=== PATIENT | female | born 1930 | race Caucasian/White ===

== ENCOUNTER 2016-12-31 12:03 | Emergency (ER) | payer MEDICARE, MEDICAID ==
[2016-12-31 12:50] VITALS: BP 133/62; TEMP 98.2
--- NOTE | 2016-12-31 13:42 | ED.PDOC ---
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 The staff pushed it back into her pelvis but it kept "falling out". So they sent her to the ER. In the ER the patient is asymptomatic with no pain complaints. Timing/Duration: just prior to arrival Quality: mild Onset Location: vaginal Radiation: none Activites at Onset: physical activity Sexual intercourse history: not active Improving Factors: nothing Worsening Factors: nothing Associated Symptoms: denies symptoms Allergies/Adverse Reactions: Allergies NO KNOWN ALLERGY Allergy (Verified 07/08/16 00:24) Home Medications: Ambulatory Orders Donepezil HCl [Aricept] 10 mg PO BEDTIME 08/06/15 Metoprolol Succinate [Metoprolol Succinate ER] 25 mg PO DAILY 08/06/15 Verapamil HCl [Verapamil HCl Sr] 240 mg PO DAILY 08/06/15 Acetaminophen [Tylenol] 650 mg PO PRN PRN 07/08/16 Aspirin [Aspirin Adult Low Dose] 81 mg PO DAILY 07/08/16 Citalopram Hydrobromide [CeleXA] 20 mg PO DAILY 07/08/16 Magnesium Hydroxide [Milk Of Magnesia] 30 mg PO PRN PRN 07/08/16 Memantine HCl [Namenda Xr] 28 mg PO DAILY 07/08/16 ALPRAZolam [Xanax] 0.25 mg PO BID PRN 07/16/16 Furosemide [Lasix] 20 mg PO QAM #30 tab 07/16/16 Review of Systems - Review of Systems Constitutional: States: no symptoms reported EENTM: States: no symptoms reported Respiratory: States: no symptoms reported Cardiology: States: no symptoms reported Gastrointestinal/Abdominal: States: no symptoms reported Genitourinary: States: see HPI Musculoskeletal: States: no symptoms reported Skin: States: no symptoms reported Neurological: States: no symptoms reported Endocrine: States: no symptoms reported Hematologic/Lymphatic: States: no symptoms reported Past Medical History (General) - Patient Medical History Hx Seizures: No Hx Stroke: No Hx Dementia: No Hx Asthma: No Hx of COPD: No Hx Cardiac Disorders: No Hx Congestive Heart Failure: No Hx Pacemaker: No Hx Hypertension: Yes Hx Thyroid Disease: No Hx Diabetes: No Hx Gastroesophageal Reflux: No Hx Renal Disease: No Hx Cancer: No Hx of HIV: No Hx Hepatitis C: No Hx MRSA: No - Vaccination History Hx Tetanus, Diphtheria Vaccination: No Hx Influenza Vaccination: No Hx Pneumococcal Vaccination: No - Social History Hx Tobacco Use: No Hx Chewing Tobacco Use: No Hx Alcohol Use: No Hx Substance Use: No Hx Substance Use Treatment: No Hx Depression: Yes Hx Physical Abuse: No Hx Emotional Abuse: No Hx Suspected Abuse: No - Activities of Daily Living Intermediate/Assisted Living (if applicable):: [email or web address] - Female History Patient is a Female of Child Bearing Age (10 -59 yrs old): No Patient : No Family Medical History - Family History Mother Family History: Unknown Living Status: Cause of : old age Physical Exam - Physical Exam General Appearance: Alert Cardiovascular/Respiratory: regular rate, rhythm, normal breath sounds Gastrointestinal/Abdominal: normal bowel sounds, non tender, soft Pelvic Exam: external exam normal, bimanual exam normal, no cerv. motion tender , other - Uterus in situ Skin Exam: normal color Departure - Departure Clinical Impression: Uterine prolapse Disposition: Discharge to SNF Condition: Good Departure Forms: ED Discharge - Pt. Copy, Patient Portal Self Enrollment Diet: resume usual diet Activity: no exercise, no lifting, other - Up with assistance Home Medications: Ambulatory Orders Donepezil HCl [Aricept] 10 mg PO BEDTIME 08/06/15 Metoprolol Succinate [Metoprolol Succinate ER] 25 mg PO DAILY 08/06/15 Verapamil HCl [Verapamil HCl Sr] 240 mg PO DAILY 08/06/15 Acetaminophen [Tylenol] 650 mg PO PRN PRN 07/08/16 Aspirin [Aspirin Adult Low Dose] 81 mg PO DAILY 07/08/16 Citalopram Hydrobromide [CeleXA] 20 mg PO DAILY 07/08/16 Magnesium Hydroxide [Milk Of Magnesia] 30 mg PO PRN PRN 07/08/16 Memantine HCl [Namenda Xr] 28 mg PO DAILY 07/08/16 ALPRAZolam [Xanax] 0.25 mg PO BID PRN 07/16/16 Furosemide [Lasix] 20 mg PO QAM #30 tab 07/16/16 Additional Instructions: Follow up with house nurse as soon as possible for further evaluation.
[2017-01-01 10:38] VITALS: O2SAT 96
== END 2016-12-31 14:15 ==
LOC: ER 12:03
DX: N81.4 Uterovaginal prolapse, unspecified (principal); I10 Essential (primary) hypertension; Z79.899 Other long term (current) drug therapy

== ENCOUNTER → 2017-01-20 | Outpatient (CLI) | payer MEDICARE, OTHER | END | disposition home or self-care (01) | LOC: GT 08:20 | PROVIDERS: ATTEND Family Medicine | DX: I10 Essential (primary) hypertension (principal) ==

== ENCOUNTER → 2017-04-28 | Outpatient (CLI) | payer MEDICARE, MEDICAID | END | disposition home or self-care (01) | LOC: GT 07:50 | PROVIDERS: ATTEND Family Medicine | DX: E78.4 Other hyperlipidemia (principal); I10 Essential (primary) hypertension; R27.8 Other lack of coordination | CPT/HCPCS: 36415; 80053; 85025; P9603 ==

== ENCOUNTER → 2017-07-28 | Outpatient (CLI) | payer MEDICARE, MEDICAID | END | disposition home or self-care (01) | LOC: GT 06:39 | PROVIDERS: ATTEND Family Medicine | DX: E78.4 Other hyperlipidemia (principal) ==

== ENCOUNTER → 2017-10-27 | Outpatient (CLI) | payer MEDICARE, MEDICAID | END | disposition home or self-care (01) | LOC: GT 07:27 | PROVIDERS: ATTEND Family Medicine | DX: E78.4 Other hyperlipidemia (principal); I10 Essential (primary) hypertension; E87.6 Hypokalemia; I73.9 Peripheral vascular disease, unspecified; R60.1 Generalized edema ==

== ENCOUNTER 2018-01-17 13:26 | Emergency (ER) | payer MEDICARE, OTHER ==
[2018-01-17] MEDS ORDERED: ONDANSETRON INJ 4 MG/2 ML VIAL ONE (13:42)
--- NOTE | 2018-01-17 14:32 | CT ---
EXAM DESCRIPTION: Head: Computed Tomography. CLINICAL HISTORY: FALL . COMPARISON: CT scan of the cervical spine on this visit. CT scan of the head 12/20/2015. TECHNIQUE: Non-helical axial scans through the skull and brain, at 2.5 mm intervals, non-contrast. Coronal and Sagittal 5.0 mm reconstructions. Total Exam DLP: 752.48 mGy-cm. This exam was performed according to our departmental dose-optimization program which includes automated exposure control, adjustment of the mA and/or kV according to patient size and/or use of iterative reconstruction technique; to reduce radiation dose to as low as reasonably achievable (ALARA). FINDINGS: No hemorrhage, no mass-effect, and no midline shift. Low-density in the periventricular white matter slightly more on the left than the right. Focal encephalomalacia in the right frontal horn near the lateral ventricle. No abnormal radiodense material in the brain parenchyma. Vascular calcifications anterior and posterior; physiologic calcifications in the pineal gland and choroid plexus. No effacement or displacement of the ventricles, CSF spaces, or subdural spaces. Temporal horns are not abnormally dilated. No extra axial fluid collection or hemorrhage. No gross abnormalities of the bony calvarium. Mucoperiosteal thickening in the included paranasal sinuses. Mastoid air cells are unremarkable. IMPRESSION: 1. No hemorrhage, no mass effect, no midline shift. Stable focal encephalomalacia in the right frontal lobe. 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 2. CT scans are insensitive for detecting small CVAs in the first 24 hours after onset. Evaluation of the brain stem is also limited. If symptoms persist, consider MRI scan of the brain with diffusion imaging. Electronically signed by: Kerwin Lockett MD 01/17/2018 2:31 PM [facility]
--- NOTE | 2018-01-17 14:48 | CT ---
EXAM DESCRIPTION: Cervical Spine: Computed Tomography. CLINICAL HISTORY: fall with n/v COMPARISON: CT scan of the head noncontrast. TECHNIQUE: Spiral, axial 2.5 mm scans through the cervical spine without contrast. Coronal and sagittal 2.0 mm Reconstructions. No adverse reactions. Total Exam DLP: 364.64 mGy-cm. This exam was performed according to our departmental dose-optimization program which includes automated exposure control, adjustment of the mA and/or kV according to patient size and/or use of iterative reconstruction technique; to reduce radiation dose to as low as reasonably achievable (ALARA). FINDINGS: Arthrosis of the atlantoaxial joint. Small bone spurs and calcifications abutting the joint. Minimal arthrosis of the atlantooccipital joint. No fractures. 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 C2-3: No disc space loss. Minimal posterior disc bulge. Left facet arthrosis with spur narrowing the foramen. No uncinate spurs. No fractures. C3-4: Normal disc space loss. More to the left of midline with endplate reactive changes and uncinate spur. Also facet arthrosis on the left resulting in neural foraminal stenosis. Right uncinate spur and facet arthrosis with mild foraminal narrowing. Posterior disc bulge with moderate canal narrowing. C4-5: Trace anterolisthesis. Posterior disc osteophyte bulge into the canal. Bilateral uncinate spurs and mild right facet arthrosis. Moderate left facet arthrosis and left neural foraminal stenosis. No fracture. C5-6: Disc space loss anterior endplate ridging and trace anterolisthesis. Minimal right facet arthrosis minimal neural foraminal narrowing. Left facet arthrosis and uncinate spur with moderate neural foraminal narrowing. Mild canal narrowing. No fracture. C6-7: Moderate disc space loss anterior disc bulge in endplate ridging. Bilateral moderate endplate reaction. Minimal left facet arthrosis and uncinate spur with moderate neural foraminal narrowing. Similar process on the right. No fracture. C7-T1: No significant disc bulge. Mild left neural foraminal narrowing. Right foramen patent. Facets negative. No fractures. T1-2: Disc space canal and neural foramina are unremarkable. No fractures. Facets negative. IMPRESSION: 1. No compression type vertebral body fractures. No fractures of the posterior elements. No perched or locked facets. No significant canal stenosis. 2. Multiple levels of spondylosis facet arthrosis with exaggerated mid cervical kyphosis. Left neural foraminal stenosis at C3-4 and C4-5. Correlate for radiculopathy at these levels. Electronically signed by: Kerwin Lockett MD 01/17/2018 2:47 PM [employer]
[2018-01-17] MEDS: ONDANSETRON INJ 4 MG/2 ML VIAL IV ONE (15:00)
--- NOTE | 2018-01-17 15:00 | RAD ---
EXAM DESCRIPTION: Abdomen Series CLINICAL HISTORY: vomiting COMPARISON: None. FINDINGS: AP supine and upright views of the abdomen show a nonspecific, nonobstructive bowel gas pattern with no evidence for free intraperitoneal air. No air-filled dilated loops of small bowel are seen. No significant air-fluid levels are identified. No obvious organomegaly is seen. No abnormal calcifications are seen in the expected location of the renal collecting systems. Single view of the chest shows mild enlargement of the cardiac silhouette without pulmonary vascular congestion.. Lungs are normally aerated and clear IMPRESSION: Nonspecific abdominal series Electronically signed by: Steve Mcguire MD 01/17/2018 2:59 PM [employer]AD[employer]INE [employer]
[2018-01-17] MEDS: SODIUM CHLORIDE 0.9% 1000ML 500 ML IVS ONE (15:01)
[2018-01-17] MEDS: OSELTAMIVIR 75 MG CAP PO ONE (15:46)
--- NOTE | 2018-01-17 15:58 | ED.PDOC ---
History of Present Illness - General Chief Complaint: Neuro Symptoms/Deficits Stated Complaint: unwitnessed fall altered mental status Time Seen by Provider: 01/17/18 13:52 Source: patient, family, EMS Exam Limitations: clinical condition - History of Present Illness Initial Comments: the patient is an 88-year-old female presenting to the emergency room secondary to 2 hours of nausea and vomiting. The nausea and vomiting started abruptly. No fevers. No headache. Mild body aches. Her [facility]mate [facility] just tested positive at a clinic for influenza. The patient did actually miss her chair while sitting down this morning and landed on her rear end. No evidence of any head trauma. She has actually been ambulatory with her walker since that time. She does not seem to have any pain in her back or pelvis upon exam and active and passive range of motion of her hips seem to be preserved. She does not appear to have any abdominal pain to palpation. Zofran seems to have quieted the nausea and vomiting. She does have significant dementia and is a little less interactive than normal according to her family. No evidence of any nuchal rigidity or meningeal signs. Timing/Duration: 1-3 hours Severity: moderate Improving Factors: nothing Worsening Factors: nothing Associated Symptoms: malaise, nausea/vomiting Allergies/Adverse Reactions: Allergies NO KNOWN ALLERGY Allergy (Verified 07/08/16 00:24) Home Medications: Ambulatory Orders Donepezil HCl [Aricept] 10 mg PO BEDTIME 08/06/15 Metoprolol Succinate [Metoprolol Succinate ER] 25 mg PO DAILY 08/06/15 Verapamil HCl [Verapamil HCl Sr] 240 mg PO DAILY 08/06/15 Acetaminophen [Tylenol] 650 mg PO PRN PRN 07/08/16 Aspirin [Aspirin Adult Low Dose] 81 mg PO DAILY 07/08/16 Citalopram Hydrobromide [CeleXA] 20 mg PO DAILY 07/08/16 Magnesium Hydroxide [Milk Of Magnesia] 30 mg PO PRN PRN 07/08/16 Memantine HCl [Namenda Xr] 28 mg PO DAILY 07/08/16 ALPRAZolam [Xanax] 0.25 mg PO BID PRN 07/16/16 Furosemide [Lasix] 20 mg PO QAM #30 tab 07/16/16 Ondansetron [Zofran Odt] 4 mg PO Q4H PRN #10 tab 01/17/18 Oseltamivir Capsule [Tamiflu] 75 mg PO BID 5 Days #10 capsule 01/17/18 Review of Systems - Review of Systems Constitutional: States: malaise EENTM: States: no symptoms reported Respiratory: States: no symptoms reported Cardiology: States: no symptoms reported Gastrointestinal/Abdominal: States: nausea, vomiting Genitourinary: States: no symptoms reported Musculoskeletal: States: no symptoms reported Skin: States: no symptoms reported Neurological: States: see HPI Endocrine: States: no symptoms reported All other Systems: No Change from Baseline Past Medical History (General) - Patient Medical History Hx Seizures: No Hx Stroke: No Hx Dementia: No Hx Asthma: No Hx of COPD: No Hx Cardiac Disorders: No Hx Congestive Heart Failure: No Hx Pacemaker: No Hx Hypertension: Yes Hx Thyroid Disease: No Hx Diabetes: No Hx Gastroesophageal Reflux: No Hx Renal Disease: No Hx Cancer: No Hx of HIV: No Hx Hepatitis C: No Hx MRSA: No - Vaccination History Hx Tetanus, Diphtheria Vaccination: No Hx Influenza Vaccination: No Hx Pneumococcal Vaccination: No - Social History Hx Tobacco Use: No Hx Chewing Tobacco Use: No Hx Alcohol Use: No Hx Substance Use: No Hx Substance Use Treatment: No Hx Depression: Yes Hx Physical Abuse: No Hx Emotional Abuse: No Hx Suspected Abuse: No - Activities of Daily Living Custodial/Assisted Living (if applicable):: [facility] - Female History Patient : No - Triage Comment ED Triage Comment: EMS states patient had an unwitnessed fall and [facility] this morning. Patient has not been the same since. Patient started vomiting. Family Medical History - Family History Mother Family History: Unknown Living Status: Cause of : old age Physical Exam - Physical Exam General Appearance: Alert, Comfortable - once the nausea and vomiting was controlled, No apparent distress Eye Exam: bilateral normal Ears, Nose, Throat: hearing grossly normal, normal ENT inspection, normal pharynx Neck: full range of motion, supple Respiratory: lungs clear, normal breath sounds, no respiratory distress, no accessory muscle use Cardiovascular/Chest: normal peripheral pulses, no edema, other - regular rate Peripheral Pulses: radial,right: 2+, radial,left: 2+, popliteal,left: 2+, dorsalis pedis,left: 2+ Gastrointestinal/Abdominal: non tender, soft Rectal Exam: deferred Back Exam: no CVA tenderness, no vertebral tenderness Extremity: normal range of motion - for this patient at her age, non-tender, normal inspection, no pedal edema, normal capillary refill Neurologic: bird sitter II-XII nml as tested, alert, normal mood/affect, other - she recognizes some of her family members but is otherwise fairly disoriented. she will answer simple questions. Skin Exam: normal color Comments: Vital Signs - 24 hr 01/17/18 01/17/18 01/17/18 13:30 14:40 15:51 Temperature 99.3 F Pulse Rate [ 67 74 72 monitor] Respiratory 22 18 16 Rate Blood Pressure 169/75 171/72 154/72 [Right Arm] O2 Sat by Pulse 94 L 95 95 Oximetry Progress - Progress Progress: 01/17/18 16:02 the patient's 88-year-old female presenting to the emergency room secondary to acute onset nausea and vomiting. She did end up with a head CT and CT scan of the cervical spine as the fall this morning was unwitnessed. No evidence of any acute pathology on either exam. She does have chronic findings. Acute abdominal series shows no evidence of any acute pathology either. laboratory work is reassuring. We are unable to test for influenza directly secondary to shortage. The patient has responded nicely to Zofran and a low-dose of IV fluids. The patient will be written for Zofran for as needed use to control nausea and vomiting and the patient will be written for Tamiflu as her roommate has apparently tested positive for influenza, making this the most likely cause. She needs to be kept well hydrated. Tamiflu can be taken with food to help reduce stomach irritation. She is to follow up with her primary care doctor in 2 days. ER warnings are given for any significant worsening. - Results/Orders Results/Orders: 01/17/18 14:14 Telemetry .CONTINUOUS Laboratory Results - last 24 hr 01/17/18 01/17/18 01/17/18 14:14 14:15 14:15 WBC 7.0 RBC 4.39 Hgb 14.0 Hct 41.2 MCV 93.9 MCH 31.8 H MCHC 34.0 RDW 14.2 Plt Count 161 MPV 10.1 Absolute Neuts (auto) 4.80 Absolute Lymphs (auto) 1.10 Absolute Monos (auto) 1.00 H Absolute Eos (auto) 0.00 Absolute Basos (auto) 0.10 Neutrophils % 68.3 Lymphocytes % 15.6 L Monocytes % 14.6 H Eosinophils % 0.3 L Basophils % 1.2 PT 15.2 H INR 1.350 PTT (SP) 33.7 Sodium 138 Potassium 3.9 Chloride 103 Carbon Dioxide 24 Anion Gap 14.9 BUN 21 H Creatinine 1.31 H BUN/Creatinine Ratio 16.0 Random Glucose 140 H Serum Osmolality 281.0 Calcium 9.3 Magnesium 2.2 Total Bilirubin 0.4 AST 22 ALT < 8 L Alkaline Phosphatase 94 Creatine Kinase 52 CK-MB (CK-2) 0.7 CK-MB (CK-2) % Not Reportable Troponin I < 0.02 B-Natriuretic Peptide 130.0 H Serum Total Protein 7.5 Albumin 3.9 Globulin 3.6 H Albumin/Globulin Ratio 1.1 Amylase 54 Lipase 27 Urine Color Urine Appearance Urine pH Ur Specific [place] Urine Protein Urine Glucose (UA) Urine Ketones Urine Blood Urine Nitrite Urine Bilirubin Urine Urobilinogen Ur Leukocyte Esterase Urine RBC Urine WBC Ur Epithelial Cells Urine Bacteria 01/17/18 15:40 WBC RBC Hgb Hct MCV MCH MCHC RDW Plt Count MPV Absolute Neuts (auto) Absolute Lymphs (auto) Absolute Monos (auto) Absolute Eos (auto) Absolute Basos (auto) Neutrophils % Lymphocytes % Monocytes % Eosinophils % Basophils % PT INR PTT (SP) Sodium Potassium Chloride Carbon Dioxide Anion Gap BUN Creatinine BUN/Creatinine Ratio Random Glucose Serum Osmolality Calcium Magnesium Total Bilirubin AST ALT Alkaline Phosphatase Creatine Kinase CK-MB (CK-2) CK-MB (CK-2) % Troponin I B-Natriuretic Peptide Serum Total Protein Albumin Globulin Albumin/Globulin Ratio Amylase Lipase Urine Color Yellow Urine Appearance Clear Urine pH 6.0 Ur Specific [place] 1.025 Urine Protein Negative Urine Glucose (UA) Negative Urine Ketones Trace Urine Blood Negative Urine Nitrite Negative Urine Bilirubin Negative Urine Urobilinogen 0.2 Ur Leukocyte Esterase Negative Urine RBC 1-3 Urine WBC 0-1 Ur Epithelial Cells 0 Urine Bacteria 0 acute abdominal series shows no acute pathology. No obvious pneumonia. No bowel obstruction. No free air. No evidence of any fracture on the visualized portion of the pelvis seen Departure - Departure Clinical Impression: Gastroenteritis Disposition: Discharge to Home or Self Care Condition: Fair Departure Forms: ED Discharge - Pt. Copy, Patient Portal Self Enrollment Instructions: DI for Viral Gastroenteritis -- Adult Diet: bland diet Activity: increase activity as tolerated Referrals: Jerome Keith MD [Primary Care Provider] - 1-2 Days Prescriptions: Ondansetron [Zofran Odt] 4 mg PO Q4H PRN #10 tab PRN Reason: Vomiting Oseltamivir Capsule [Tamiflu] 75 mg PO BID 5 Days #10 capsule Home Medications: Ambulatory Orders Donepezil HCl [Aricept] 10 mg PO BEDTIME 08/06/15 Metoprolol Succinate [Metoprolol Succinate ER] 25 mg PO DAILY 08/06/15 Verapamil HCl [Verapamil HCl Sr] 240 mg PO DAILY 08/06/15 Acetaminophen [Tylenol] 650 mg PO PRN PRN 07/08/16 Aspirin [Aspirin Adult Low Dose] 81 mg PO DAILY 07/08/16 Citalopram Hydrobromide [CeleXA] 20 mg PO DAILY 07/08/16 Magnesium Hydroxide [Milk Of Magnesia] 30 mg PO PRN PRN 07/08/16 Memantine HCl [Namenda Xr] 28 mg PO DAILY 07/08/16 ALPRAZolam [Xanax] 0.25 mg PO BID PRN 07/16/16 Furosemide [Lasix] 20 mg PO QAM #30 tab 07/16/16 Ondansetron [Zofran Odt] 4 mg PO Q4H PRN #10 tab 01/17/18 Oseltamivir Capsule [Tamiflu] 75 mg PO BID 5 Days #10 capsule 01/17/18 Additional Instructions: the patient's 88-year-old female presenting to the emergency room secondary to acute onset nausea and vomiting. She did end up with a head CT and CT scan of the cervical spine as the fall this morning was unwitnessed. No evidence of any acute pathology on either exam. She does have chronic findings. Acute abdominal series shows no evidence of any acute pathology either. laboratory work is reassuring. We are unable to test for influenza directly secondary to shortage. The patient has responded nicely to Zofran and a low-dose of IV fluids. The patient will be written for Zofran for as needed use to control nausea and vomiting and the patient will be written for Tamiflu as her roommate has apparently tested positive for influenza, making this the most likely cause. She needs to be kept well hydrated. Tamiflu can be taken with food to help reduce stomach irritation. She is to follow up with her primary care doctor in 2 days. ER warnings are given for any significant worsening. Lasix and Aricept should likely be held until oral intake has improved.
[2018-01-17] MEDS: ONDANSETRON ODT 8 MG TAB SL ONE (16:12)
[2018-01-17] MEDS: FAMOTIDINE 20 MG TAB PO ONE (16:12)
[2018-01-17 16:48] VITALS: BP 138/68; TEMP 99.1; O2SAT 96
== END 2018-01-17 16:47 ==
LOC: ER 13:26
DX: K52.9 Noninfective gastroenteritis and colitis, unspecified (principal); I10 Essential (primary) hypertension; F03.90 Unspecified dementia, unspecified severity, without behavioral disturbance, psychotic disturbance, mood disturbance, and anxiety
CPT/HCPCS: 36415; 70450; 72125; 74019; 80053; 81001; 82150; 82550; 82553; 83690; 83735; 83880; 84484; 85025; 85610; 85730; J2405; J7030

== ENCOUNTER → 2018-01-26 | Outpatient (CLI) | payer MEDICARE, OTHER | LOC: GT 06:41 | PROVIDERS: ATTEND Family Medicine | DX: I10 Essential (primary) hypertension (principal); I73.9 Peripheral vascular disease, unspecified; R60.1 Generalized edema; E87.6 Hypokalemia; E78.4 Other hyperlipidemia; F03.90 Unspecified dementia, unspecified severity, without behavioral disturbance, psychotic disturbance, mood disturbance, and anxiety ==

== ENCOUNTER 2018-09-17 22:37 | Emergency (ER) | payer MEDICARE, MEDICAID ==
--- NOTE | 2018-09-17 22:54 | ED.PDOC ---
History of Present Illness - General Chief Complaint: Trauma Stated Complaint: fell Time Seen by Provider: 09/17/18 22:51 Source: patient, family, EMS Exam Limitations: physical impairment - dementia - History of Present Illness Initial Comments: patient is a halfway resident who was found after falling and hitting her head on the left side. Patient states she doesn't remember what happened at this time she denies any pain or discomfort. She states she is able to see well and denies any nausea. Patient does have a baseline of dementiaand atrial fibrillation and is currently on a blood thinner. Occurred: just prior to arrival Severity: mild Pain Location: none Method of Injury: fall Improving Factors: nothing Worsening Factors: nothing Loss of Consciousness: no loss of consciousness Associated Symptoms (Fall): denies symptoms Allergies/Adverse Reactions: Allergies NO KNOWN ALLERGY Allergy (Verified 07/08/16 00:24) Home Medications: Ambulatory Orders Donepezil HCl [Aricept] 10 mg PO BEDTIME 08/06/15 Metoprolol Succinate [Metoprolol Succinate ER] 25 mg PO DAILY 08/06/15 Verapamil HCl [Verapamil HCl Sr] 240 mg PO DAILY 08/06/15 Acetaminophen [Tylenol] 650 mg PO PRN PRN 07/08/16 Aspirin [Aspirin Adult Low Dose] 81 mg PO DAILY 07/08/16 Citalopram Hydrobromide [CeleXA] 20 mg PO DAILY 07/08/16 Magnesium Hydroxide [Milk Of Magnesia] 30 mg PO PRN PRN 07/08/16 Memantine HCl [Namenda Xr] 28 mg PO DAILY 07/08/16 ALPRAZolam [Xanax] 0.25 mg PO BID PRN 07/16/16 Furosemide [Lasix] 20 mg PO QAM #30 tab 07/16/16 Ondansetron [Zofran Odt] 4 mg PO Q4H PRN #10 tab 01/17/18 Oseltamivir Capsule [Tamiflu] 75 mg PO BID 5 Days #10 capsule 01/17/18 Review of Systems - Review of Systems Constitutional: States: no symptoms reported. Denies: chills, fever EENTM: States: no symptoms reported. Denies: eye pain, ear pain, nose pain, throat pain Respiratory: States: no symptoms reported. Denies: cough, short of breath, wheezing Cardiology: States: no symptoms reported. Denies: chest pain, edema, palpitations Gastrointestinal/Abdominal: States: no symptoms reported. Denies: abdominal pain, diarrhea, nausea, vomiting Musculoskeletal: States: no symptoms reported Skin: States: see HPI Neurological: States: no symptoms reported. Denies: headache, numbness, paresthesia Past Medical History (General) - Patient Medical History Hx Seizures: No Hx Stroke: No Hx Dementia: No Hx Asthma: No Hx of COPD: No Hx Cardiac Disorders: No Hx Congestive Heart Failure: No Hx Pacemaker: No Hx Hypertension: Yes Hx Thyroid Disease: No Hx Diabetes: No Hx Gastroesophageal Reflux: No Hx Renal Disease: No Hx Cancer: No Hx of HIV: No Hx Hepatitis C: No Hx MRSA: No - Vaccination History Hx Tetanus, Diphtheria Vaccination: No Hx Influenza Vaccination: No Hx Pneumococcal Vaccination: No - Social History Hx Tobacco Use: No Hx Chewing Tobacco Use: No Hx Alcohol Use: No Hx Substance Use: No Hx Substance Use Treatment: No Hx Depression: Yes Hx Physical Abuse: No Hx Emotional Abuse: No Hx Suspected Abuse: No - Female History Patient : No Family Medical History - Family History Mother Family History: Unknown Living Status: Cause of : old age Physical Exam - Physical Exam General Appearance: Alert, No apparent distress Head Injury: other - small superficial laceration above L eye with hematoma, no tenderness to scalp, neck, no raccon eyes, no orlando's sign Eye Exam: bilateral normal ENT Exam: hearing grossly normal, no evidence of ENT injury, no dental injury Neck Exam: non-tender, full range of motion, normal alignment, normal inspection Cardiovascular/Respiratory: no M/R/G, normal breath sounds, no respiratory distress, irregularly irregular, other - no tenderness to palpation of chest wall, clavicle Gastrointestinal/Abdominal: normal bowel sounds, non tender, soft Back Exam: normal inspection, no CVA tenderness, no vertebral tenderness Extremity Exam: no evidence of injury, normal range of motion, non-tender Neurologic: histotechnician II-XII nml as tested, no motor/sensory deficits, alert Skin Exam: normal color - Felicita Coma Score Best Eye Response ([place]): (4) open spontaneously Best Verbal Response ([place]): (5) oriented Best Motor Response ([place]): (6) obeys commands [place] Total: 15 Progress - Results/Orders Results/Orders: Patient Name: ZULEMA DUMONT Gender: Female Date of : 1930 Referring Physician: GAYE RUTH Organization: [facility] Accession Number: [id number] Requested Date: September 17, 2018 22:51 Report Status: Final Requested Procedure: 1 Procedure Description: Head Modality: CT Findings Reporting MD: Randy Doherty Fellow MD: Not available Dictation Time: Cigar Maker: Not available Clinical Systems Educator Date: EXAM DATE: 09/17/2018 10:51 PM CDT. PROCEDURE: CT HEAD WITHOUT IV CONTRAST. INDICATION: fall on blood thinner with head injury. COMPARISON: 01/17/2018. TECHNIQUE: Axial CT images of the head were acquired without intravenous contrast. This exam was performed according to our departmental dose-optimization program which includes use of Automated Exposure Control, adjustment of the mA and/or kV according to patient size and/or use of iterative reconstruction technique. FINDINGS: No acute intracranial hemorrhage. Leblanc white matter differentiation is preserved. No mass effect or midline shift. Scattered white matter hypoattenuation compatible with mild chronic microvascular angiopathy. 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 Mild generalized brain volume loss. Small left periorbital hematoma or skin thickening. The paranasal sinuses are well aerated. Mastoid air cells are clear. Intact calvarium. IMPRESSION: No acute intracranial abnormality. Small left periorbital hematoma or soft tissue thickening. Mild chronic senescent changes Departure - Departure Clinical Impression: Contusion of face Qualifiers: Encounter type: initial encounter Qualified Code(s): S00.83XA - Contusion of other part of head, initial encounter Disposition: Discharge to SNF Condition: Good Departure Forms: ED Discharge - Pt. Copy, Patient Portal Self Enrollment Instructions: DI for Trauma Referrals: Jerome Keith MD [Primary Care Provider] - 1-2 Weeks Home Medications: Ambulatory Orders Donepezil HCl [Aricept] 10 mg PO BEDTIME 08/06/15 Metoprolol Succinate [Metoprolol Succinate ER] 25 mg PO DAILY 08/06/15 Verapamil HCl [Verapamil HCl Sr] 240 mg PO DAILY 08/06/15 Acetaminophen [Tylenol] 650 mg PO PRN PRN 07/08/16 Aspirin [Aspirin Adult Low Dose] 81 mg PO DAILY 07/08/16 Citalopram Hydrobromide [CeleXA] 20 mg PO DAILY 07/08/16 Magnesium Hydroxide [Milk Of Magnesia] 30 mg PO PRN PRN 07/08/16 Memantine HCl [Namenda Xr] 28 mg PO DAILY 07/08/16 ALPRAZolam [Xanax] 0.25 mg PO BID PRN 07/16/16 Furosemide [Lasix] 20 mg PO QAM #30 tab 07/16/16 Ondansetron [Zofran Odt] 4 mg PO Q4H PRN #10 tab 01/17/18 Oseltamivir Capsule [Tamiflu] 75 mg PO BID 5 Days #10 capsule 01/17/18 Additional Instructions: keep area cleaned BID with warm soapy water and pat dry. Return to ER for nausea, vision change, or altered LOC
--- NOTE | 2018-09-17 23:28 | CT ---
EXAM DATE: 09/17/2018 10:51 PM CDT. PROCEDURE: CT HEAD WITHOUT IV CONTRAST. INDICATION: fall on blood thinner with head injury. COMPARISON: 01/17/2018. TECHNIQUE: Axial CT images of the head were acquired without intravenous contrast. This exam was performed according to our departmental dose-optimization program which includes use of Automated Exposure Control, adjustment of the mA and/or kV according to patient size and/or use of iterative reconstruction technique. FINDINGS: No acute intracranial hemorrhage. Leblanc white matter differentiation is preserved. No mass effect or midline shift. Scattered white matter hypoattenuation compatible with mild chronic microvascular angiopathy. 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 Mild generalized brain volume loss. Small left periorbital hematoma or skin thickening. The paranasal sinuses are well aerated. Mastoid air cells are clear. Intact calvarium. IMPRESSION: No acute intracranial abnormality. Small left periorbital hematoma or soft tissue thickening. Mild chronic senescent changes. Electronically signed by: Randy Doherty MD 09/17/2018 11:27 PM CDT
[2018-09-17 23:52] VITALS: O2SAT 98
[2018-09-18 00:07] VITALS: BP 119/69; TEMP 97.2
== END 2018-09-18 00:05 ==
LOC: ER 22:37
DX: S00.83XA Contusion of other part of head, initial encounter (principal); F03.90 Unspecified dementia, unspecified severity, without behavioral disturbance, psychotic disturbance, mood disturbance, and anxiety; F32.9 Major depressive disorder, single episode, unspecified; I10 Essential (primary) hypertension; Z79.899 Other long term (current) drug therapy; W19.XXXA Unspecified fall, initial encounter; Y92.129 Unspecified place in nursing home as the place of occurrence of the external cause

== ENCOUNTER → 2020-09-19 | Outpatient (CLI) | payer MEDICARE, MEDICAID | LOC: GT 20:55 | PROVIDERS: ATTEND Family Medicine | DX: B34.2 Coronavirus infection, unspecified (principal); R71.8 Other abnormality of red blood cells; R09.02 Hypoxemia ==